=== PATIENT | female | born 1985 | race Caucasian/White ===

== ENCOUNTER → 2019-02-15 11:19 | Outpatient (CLI) | payer OTHER, SELFPAY ==
--- NOTE | 2019-02-15 | DI.RAD.S_ITS ---
PROCEDURE: XR CHEST 2V INDICATIONS: abd pain, rib pain TECHNIQUE: 2 views of the chest were acquired. COMPARISON: None. FINDINGS: Surgical changes and devices: None. Lungs and pleura: Lungs are clear. No pleural effusions or pneumothorax. Mediastinum: Mediastinal contours are normal. Heart size is normal. Bones and chest wall: No suspicious bony abnormalities. Soft tissues appear unremarkable. A metallic alvarez projects over the right upper quadrant of the abdomen on PA view and anteriorly external to the patient on lateral view. IMPRESSION: No acute cardiopulmonary disease. Dictated by: Bob Trinh M.D. on 02/15/2019 at 12:11 Approved by: Bob Trinh M.D. on 02/15/2019 at 12:14
--- NOTE | 2019-02-15 | DI.US.S_ITS ---
PROCEDURE: US ABDOMEN COMPLETE INDICATIONS: ABDOMINAL PAIN TECHNIQUE: Real-time scanning was performed of the abdominal and retroperitoneal organs, with image documentation. COMPARISON: None. FINDINGS: Liver: Liver is normal in size and homogeneous in echotexture. Gallbladder: 3.9 mm gallbladder polyp; otherwise normal gallbladder. Biliary ducts: Intrahepatic bile ducts are non-dilated. Extrahepatic bile duct caliber measures 4.9 mm. Normal is 6-7 mm or less in diameter, or 10 mm or less post-cholecystectomy. Pancreas: Visualized portions of the pancreas are sonographically normal. Spleen: Spleen is normal in size and homogeneous in echotexture. Kidneys: Kidneys are normal in size and echotexture. Right kidney measures 11.7 cm long; left kidney measures 11.1 cm long. No hydronephrosis or nephrolithiasis. No solid masses. Aorta: Visualized aorta is normal in caliber at less than 3 cm. Iliacs: Proximal common iliac arteries are normal in caliber at less than 2.5 cm. IVC: Intrahepatic inferior vena cava is patent. Miscellaneous: No free abdominal fluid. IMPRESSION: 1. 3.9 mm gallbladder polyp. Given the small size, no followup is necessary. 2. No source for right upper quadrant pain identified. Dictated by: Manuel PRATT Interpreted: Neal Martell MD on 02/15/2019 at 12:11 Approved by: Neal Martell M.D. on 02/15/2019 at 14:57
== END ==
PROVIDERS: PCP Family Medicine; Visit Provider Family Medicine
DX: K82.4 Cholesterolosis of gallbladder (principal); R10.9 Unspecified abdominal pain; R07.81 Pleurodynia
CPT/HCPCS: 71046; 76700

== ENCOUNTER → 2019-06-01 10:42 | Outpatient (CLI) | payer OTHER, SELFPAY ==
--- NOTE | 2019-06-01 | DI.US.S_ITS ---
PROCEDURE: US OB <= 14 WEEKS FETUS INDICATIONS: INITIAL SIZING AND DATING OUTSIDE/PRIOR DATING DATA: Last menstrual period (LMP): 04/16/19. LMP-based estimated date of delivery (GIO): 01/21/20. First dating scan (date and location): 06/01/19. Estimated date of delivery (GIO) from first dating scan: 01/26/20. TECHNIQUE: Real-time scanning was performed of the fetus and maternal pelvic organs, with image documentation. COMPARISON: None. FINDINGS: Embryo: Single intrauterine gestational sac is seen with fetus and yolk sac seen. heart rate is 109 beats per minute. [place]-rump length measures 3 mm. Estimated gestational age is 5 weeks, 6 days. Measurement variability in dating: +/- 4 weeks by LMP, +/- 7 days by mean sac diameter (use before 6 weeks gestation if crown-rump length not able to be measured), +/- 5 days by crown-rump length (up to 8 weeks 6 days gestation), +/- 7 days by crown-rump length (up to 13 weeks 6 days gestation). Maternal organs: There is questionable implantation new right cornu, a cornual ectopic cannot be excluded. Followup is recommended. No gross abnormalities in the bilateral adnexa. Limited images through the kidneys demonstrate no hydronephrosis. Small amount of free fluid is seen in posterior cul-de-sac and anterior to the uterus. IMPRESSION: 1. Single intrauterine gestation with fetus a new fracture seen. heart rate is 109 beats per minute. 2. Questionable right cornual implantation, suggests sonographic followup. 3. Small amount of free fluid in the posterior cul-de-sac and anterior to the uterus. Dictated by: Yoseph Gallagher M.D. on 06/01/2019 at 13:20 Approved by: Yoseph Gallagher M.D. on 06/01/2019 at 13:24
== END ==
PROVIDERS: PCP Family Medicine; Visit Provider Family Medicine
DX: Z34.91 Encounter for supervision of normal pregnancy, unspecified, first trimester (principal); Z3A.01 Less than 8 weeks gestation of pregnancy
CPT/HCPCS: 76801; 76817

== ENCOUNTER → 2019-06-12 08:53 | Outpatient (CLI) | payer OTHER, SELFPAY ==
--- NOTE | 2019-06-12 | DI.US.S_ITS ---
PROCEDURE: US OB <= 14 WEEKS FETUS INDICATIONS: RECHECK RIGHT CORNUAL IMPLANTATION OUTSIDE/PRIOR DATING DATA: Last menstrual period (LMP): 04/16/19. LMP-based estimated date of delivery (GIO): 01/21/20. First dating scan (date and location): A 06/01/19. Estimated date of delivery (GIO) from first dating scan: 01/26/20. TECHNIQUE: Real-time scanning was performed of the fetus and maternal pelvic organs, with image documentation. Endovaginal scanning was also performed to better visualize the fetus and maternal ovaries. COMPARISON: [facility], [facility], 03/23/2017, 14:55. [facility], [facility], 01/28/2017, 9:06. [facility], OB COMPLETE 14WKS OR MORE, 11/09/2016, 10:07. [facility], OB COMPLETE LESS THAN 14 WKS, 09/23/2016, 8:34. [facility], OB COMPLETE LESS THAN 14 WKS, 08/09/2016, 9:31. [facility], US ABDOMEN COMPLETE, 02/15/2019, 11:45. [facility], US OB <= 14 WEEKS FETUS, 06/01/2019, 11:04. FINDINGS: Embryo: [place]-rump length now 1.5 cm correlating with a gestational age of 7 weeks 5 days. Expected value from first OB ultrasound is 7 weeks 3 days. Appropriate interval growth, heart rate of 152 beats per minute observed, maternal cervical canal is 3.3 cm in length. Measurement variability in dating: +/- 4 weeks by LMP, +/- 7 days by mean sac diameter (use before 6 weeks gestation if crown-rump length not able to be measured), +/- 5 days by crown-rump length (up to 8 weeks 6 days gestation), +/- 7 days by crown-rump length (up to 13 weeks 6 days gestation). Maternal organs: Ovaries normal considering gestational status. Limited images through the kidneys demonstrate no hydronephrosis. Please note that as was the case with the first OB ultrasound on this study the uterus is seen to be at least partially if not bicornuate in its morphology. The current gestation is implanted within the right upper endometrial canal, and the left cornua appears uninvolved by this . IMPRESSION: Eccentric implantation of the current single intrauterine gestation, within the right cornua. This raises concern for a higher risk and specialist OB consultation appears warranted. Appropriate interval growth, no sign of abruption or perigestational hemorrhage at this time. Dictated by: Walter Styles M.D. on 06/12/2019 at 11:28 Approved by: Walter Styles M.D. on 06/12/2019 at 11:34
== END ==
PROVIDERS: PCP Family Medicine; Visit Provider Family Medicine
DX: Z36.2 Encounter for other antenatal screening follow-up (principal); Z3A.01 Less than 8 weeks gestation of pregnancy
CPT/HCPCS: 76801

== ENCOUNTER → 2019-12-25 19:13 | Outpatient (CLI) | payer OTHER, SELFPAY | PROVIDERS: PCP Family Medicine; Visit Provider Family Medicine | DX: Z34.80 Encounter for supervision of other normal pregnancy, unspecified trimester (principal) | CPT/HCPCS: 87081 ==

== ENCOUNTER → 2020-01-24 11:18 | Outpatient (CLI) | payer OTHER, SELFPAY ==
[2020-01-25 12:38] LABS: COVID19 Sendout Not Detected (Not Detect)
== END ==
PROVIDERS: PCP Family Medicine; Visit Provider Physician Assistant
DX: Z01.812 Encounter for preprocedural laboratory examination (principal)
CPT/HCPCS: 87635

== ENCOUNTER 2020-01-27 19:12 | Inpatient (IN) | payer OTHER, SELFPAY ==
--- NOTE | 2020-01-27 19:46 | DI.US.S_ITS ---
PROCEDURE: US OB LIMITED INDICATIONS: POSITION, CHASTITY, PLACENTA OUTSIDE/PRIOR DATING DATA: Last menstrual period (LMP): 04/16/2019 LMP-based estimated date of delivery (GIO): 01/21/2020 First dating scan (date and location): 06/01/2019 Estimated date of delivery (GIO) from first dating scan: 01/26/2020. TECHNIQUE: Real-time scanning was performed of the fetus, with image documentation. Endovaginal scanning: Not done. COMPARISON: [facility], [facility], 03/23/2017, 14:55. [facility] OB <= 14 WEEKS FETUS, 06/01/2019, 11:04. [facility] OB <= 14 WEEKS FETUS, 06/12/2019, 9:09. FINDINGS: A single live intrauterine gestation is present. Presentation: Vertex. Placenta: Placental position is anterior, without previa. Amniotic fluid index: 6.8 cm, normal range is 5-24 cm. heart rate: 163 beats per minute. Maternal cervical canal: Not seen. Estimated gestational age from initial scan: 40 weeks 1 day. IMPRESSION: Vertex presentation. CHASTITY equals 6.8 cm. Anterior placenta, without previa. Dictated by: Parag Morales M.D. on 01/27/2020 at 19:31 Approved by: Parag Morales M.D. on 01/27/2020 at 19:34
[2020-01-27] MEDS: DINOPROSTONE VAG (CERVIDIL) 10 MG VAG (21:28)
[2020-01-27 22:19] LABS: Add Manual Diff / Slide Review NO; Basophils Absolute Auto 0 /uL (0-100); Basophils Percent Auto 0.3 % (0-2); Eosinophils Absolute Auto 0 /uL (0-450); Eosinophils Percent Auto 0.3 % (2-4); Hematocrit 36.2 % (36-46); Hemoglobin 12.6 g/dL (12.0-16.0); Lymphocytes Absolute Auto 1600 /uL (1100-4500); Lymphocytes Percent Auto 21.2 % (25-40); Mean Corpuscular HGB Conc 34.7 % (30-36); Mean Corpuscular Hemoglobin 31.4 PG (26-34); Mean Corpuscular Volume 90.5 fL (80-100); Monocytes Absolute Auto 500 /uL (0-900); Monocytes Percent Auto 6.2 % (3-14); Neutrophils Absolute Auto 5400 /uL (1500-7000); Platelet Count 158 X10^3/uL (150-400); Red Cell Distribution Width 13.9 % (11.6-14.8); White Blood Cell Count 7.6 X10^3/uL (4.5-11.0)
[2020-01-28 00:14] VITALS: BP 111/74
[2020-01-28] MEDS: LACTATED RINGERS 1,000 ML 100 ML IV (07:55)
[2020-01-28] MEDS: OXYTOCIN PREMIX 30 UNIT/500 ML PLAST..BAG IV (09:46)
--- NOTE | 2020-01-28 13:27 | PM.AN.REGBLK ---
Regional Block Pre-procedure Procedure: Continuous Lumbar Epidural for L&D Attending OB provider: Renata Alvarado PMH/ROS narrative: term labor, no complications, no significant PMH. Hx: No personal or family history of anesthesia problems. ASA Class: II Labs: Hct 36.2 % (36-46) 01/27/20 22:00 Plt Count 158 X10^3/uL (150-400) 01/27/20 22:00 Medications: Current Medications Generic Name Dose Route Start Last Admin Trade Name Freq PRN Reason Stop Dose Admin Diphenhydramine HCl 25 mg 01/28/20 12:10 Benadryl IV Q10M PRN Pruritis Lactated Ringer's 1,000 mls @ 100 mls/hr 01/27/20 19:30 01/28/20 07:55 Lactated Ringers IV 100 mls/hr CONT SHANNA Administration Oxytocin/Lactated Ringer's 30 unit in 500 mls @ 1 mls/hr 01/28/20 09:15 01/28/20 09:46 Oxytocin Premix IV 1 milliunit/min TITRATE SHANNA 1 mls/hr Administration Protocol 1 MILLIUNIT/MIN FENT 2MCG/ML BUPIV 0.125% EPI 200 mcg in 100 mls @ 6 mls/hr 01/28/20 12:15 Fentanyl/Bupiv/Ns 2mcg/Ml - 0.125% EPIDURAL CONT SHANNA Misoprostol 25 mcg 01/27/20 19:16 Cytotec PO Q4HR PRN Cervical Ripening Zolpidem Tartrate 5 mg 01/27/20 19:16 Ambien PO BEDTIME PRN Sleep Allergies: Allergies Allergy/AdvReac Type Severity Reaction Status Date / Time No Known Drug Allergies Allergy Unverified 01/24/20 11:16 Procedure Insertion date: 01/28/20 Insertion time: 11:28 Prep/Local: betadine x3 Interspace: L2-3 Patient position: sitting Needle: 18 gauge Hustead (27g Pencan through Hustead, clear CSF, 0.5mL 0.25% bupiv) Loss of resistance with: saline HARMEET at (cm): 4 Catheter placed at SKIN (cm): 9 Catheter in SPACE (cm): 5 Insertion: No Blood, No Paresthesia with insertion, No Paresthesia with injection and No Test dose reaction Initial Medications TEST DOSE time: 12:32 TEST DOSE: 1.5% lidocaine with epinephrine 1:200k (mL): 3 BOLUS DOSE time: 12:34 BOLUS DOSE (mL): 3 BOLUS DOSE med: 0.125% bupivacaine with fentanyl 10 mcg/mL (infusate) Infusion INFUSION: 0.125% bupivacaine and with fentanyl 2 mcg/mL Initial rate (mL/hr): 8 Subsequent interventions: 18:10 4mL 0.25% bupiv with 50mcg fentanyl Post-procedure Anesthesia time START: 12:28 Anesthesia time END: 18:49
--- NOTE | 2020-01-28 17:25 | PM.OBPNLAB ---
Date/Time Date Patient Seen: 01/28/20 Time Patient Seen: 17:09 Pain Control Pain control: epidural Pelvic Exam Dilation (cm): 5 Effacement (%): 90 station: -1 Amniotic membrane status: Intact Contractions Contractions on admission: irregular Monitor mode: External Pitocin rate (mU/min): 2 Contraction frequency (min): 3 Contraction duration (min): 60 Contraction pattern: Irregular Contraction intensity: Moderate Status status: Category l Heart Rate Baseline: 110 Monitor Accelerations: Present Monitor Decelerations: Variable Monitor Variability: Moderate Comments: Overall reassuring strip which I would say is probably category 1. Low baseline heart rate in the 1 teens and at times in the low 100s. Good reactivity with head stimulation. Baby is still active. Assessment and Plan Assessment: active labor Plan: continuous present management
--- NOTE | 2020-01-28 17:27 | PM.OBPNLAB ---
Pelvic Exam Dilation (cm): 5 Effacement (%): 90 station: -1 Amniotic membrane status: Intact Contractions Monitor mode: External Contraction frequency (min): 3 Contraction pattern: Irregular Contraction intensity: Moderate Status status: Category l
--- NOTE | 2020-01-28 19:23 | P.PCNOB_ITS ---
Events: Low Fluid Volume in Amniotic Sac Labor & Delivery Delivery date: 01/28/20 Intrapartal events: None Cervical ripening method: per Cervidil protocol Induction method: per pitocin protocol Delivery augmentation: rupture of membranes Delivery monitor: external FHT and external uterine Route of delivery: L&D Laceration Description: Periurethral - 1st Degree and Superficial Delivery repair: chromic Estimated blood loss (mL): 300 Anesthesia type: Epidural Complications: rapid labor and delivery after 5 cm dilated Narrative: Identifying data: 34-year-old at 41 weeks estimated gestational age based on LMP and 1st trimester ultrasounds x2 is brought into labor and delivery for cervical ripening and induction. Patient received Cervidil last n ight because she was having contractions but not really feeling them so we opted for Cervidil. Patient was showing some mild progression this morning and Pitocin was begun. She had an uncomplicated . She has history of bicornuate uterus but good growth and no evidence of labor. GBS negative, Rh positive, cell free DNA negative, normal glucose tolerance test Stage I: 2 hours and 36 minutes Patient came in for cervical ripening and spent the night. She received 1 Cervidil. It was removed at 9:30 a.m. inpatient was 1 cm dilated 60% effaced posterior and negative 2 position. Pitocin was begun and maximum Pitocin was 3 milliunits. Patient had immediate development of contractions that were every 2 minutes and was feeling mildly. She was requesting pain medication and epidural was placed at 12:32 p.m.. She was felt to be active at 4:00 p.m. when she was showing cervical change going from 2-3 at 1:30 p.m. to 4 cm at about 1600. External tocometer was used throughout this stage. External heart monitor was used throughout this stage. Baseline varied from low 100s to 1 teens occasionally into the 120s with accelerations occasional variable decelerations occasional late placed mild deceleration that did not persist once IV fluids were given. There are periods of decreased variability but overall moderate variability and category 1 tracing. Baby had good accelerations with head stimulation. Artificial rupture membranes was done at 4:45 p.m. after multiple times and there is very small amount of clear bloody fluid that was obtained. At approximately 6:00 p.m. patient started feeling more pressure with her contractions. Then at approximately 6:20 p.m. she had significant increase in pain in anesthesia was called bolus was given but she did not have good relief and then they attempted to redo her epidural but she clearly appear to be in transition and was found to be 7 cm dilated. I was called by the nurse at that time and arrive several minutes later however when she was laid back down in the bed she is centrally was complete at 6:30 p.m. and involuntary pushing at 6:35 p.m. and delivered at 6:[address] goldberg was in the department and she stood by an assisted with the delivery. Baby was in occiput anterior position with a right compound presentation and easily delivered. Apgars were 9 at 1 minute and 9 at 5 minutes. The cord was clamped x2 and cut. Stage II lasted about 5 minutes Patient was laid down after they attempted to replace her epidural and was noted to be complete and baby was . She paid pushed for approximately 30 seconds and deliver the baby in the presence of Dr. goldberg at 6:36 p.m.. Compound presentation. Baby was vigorous at delivery with Apgars 9 at 1 minute and 9 at 5 minutes Stage III lasted 19 minutes Normal spontaneous vaginal delivery of an intact moderately calcified small but thick placenta with a lateral cord insertion and a 3 vessel cord. Estimated blood loss was 300 cc in the Pitocin was running. There was a 2 cm right periurethral laceration that was deepened bleeding a little bit and this was repaired with 3-0 Vicryl and 1% lidocaine. There was a perineal skid hema that was repaired as well. There were no cervical or vaginal tears. Pitocin was running in as the placenta was being delivered At the time this dictation both mom and baby are in stable condition
--- NOTE | 2020-01-28 19:50 | PM.OBHP.1 ---
OB HPI Date/Time Date of admission: 01/28/20 Date Patient Seen: 01/28/20 Time Patient Seen: 08:00 History of Present Condition Chief complaint: maternity : 3 Para: 1 Estimated Date of Delivery: 01/21/20 Estimated Gestational Age (weeks): 41 Narrative: Jennie Vega is a 34 year old female 41 weeks gestation with EDC of 01/21/2020 based on LMP and 1st trimester ultrasound x2. Patient was brought in for cervical ripening and planned induction for post dates and ultrasound was done to evaluate for placement CHASTITY was 6.8. Patient had a unremarkable . She was seen approximately 12 times. She had a weight gain of approximately 30 lb. Her blood pressures were 98-120/66-80. She had no complications Indications Indication for induction OB: post dates History of Present care: good care Dating criteria: LMP confirmed by 1st trimester US Ultrasounds: normal 1st trimester US and normal mid trimester US Abnormal ultrasound findings: Bicornuate uterus on early ultrasound but not present at 20 week level 2 ultrasound Obstetrical complications: none Medical complications: none Preadmission Labs Blood type: A (+) positive -: Antibody screen: negative, Cystic fibrosis screen: negative, GBS status: negative, HBsAG: negative, HIV: negative, HSV 1: negative, HSV 2: negative and RPR/VDLR: negative -: Chlamydia screen: not detected and Gonorrhea screen: not detected -: Rubella: immune and Varicella: immune HCT: 35.3 HCAB: negative PAP: Normal Cell-free DNA: Normal xy Urine: Negative 1 hr GTT: 136 Prior (ies) History: 03/26/2017, normal spontaneous vaginal delivery at 39 weeks at [facility] with epidural with no complications Previous spontaneous miscarriage first-trimester Evaluation Evaluation Laboratory results: Laboratory Tests 01/27/20 01/27/20 22:00 22:00 WBC 7.6 RBC 4.00 Hgb 12.6 Hct 36.2 MCV 90.5 MCH 31.4 MCHC 34.7 RDW 13.9 Plt Count 158 Neut % (Auto) 72.0 Lymph % (Auto) 21.2 L [place] % (Auto) 6.2 Eos % (Auto) 0.3 L Baso % (Auto) 0.3 Neut # (Auto) 5400 Lymph # (Auto) 1600 [place] # (Auto) 500 Eos # (Auto) 0 Baso # (Auto) 0 Blood Type A Positive Antibody Screen Negative [facility] Surgical History Status post dilation and curettage Status post myringotomy with insertion of tube Social History Smoking Status: Never smoker Meds Home Medications and Allergies Home Medications Medication Instructions Recorded Confirmed Type VIT#96/FERROUS FUM/FA 1 tab PO QDAY #0 tab 04/05/16 01/27/20 History ( Vitamin) folic acid 1 mg PO QDAY #0 tab 04/05/16 01/27/20 History Allergies Allergy/AdvReac Type Severity Reaction Status Date / Time No Known Drug Allergies Allergy Unverified 01/24/20 11:16 Review of Systems Review of Systems Narrative: Negative for leaking fluid No headaches. No mid epigastric pain. No lower extremity edema. Baby is active. No change in discharge. No significant contractions. No fever no cough. Co the time stain negative Exam Vital Signs (past 8 hours): Afebrile vital signs are stable HEENT unremarkable Neck is supple without adenopathy or masses Chest: Clear to auscultation without wheezes rhonchi or crackles Cor: Regular rate and rhythm without murmur Abdomen: Positive bowel sounds, soft, nontender, gravid, vertex presentation with estimated weight 7-1/2 lb Extremities: No edema, DTRs intact Objective Labs Result Diagrams: 01/27/20 22:00 Labs: Laboratory Results - last 24 hr 01/27/20 01/27/20 22:00 22:00 WBC 7.6 RBC 4.00 Hgb 12.6 Hct 36.2 MCV 90.5 MCH 31.4 MCHC 34.7 RDW 13.9 Plt Count 158 Neut % (Auto) 72.0 Lymph % (Auto) 21.2 L [place] % (Auto) 6.2 Eos % (Auto) 0.3 L Baso % (Auto) 0.3 Neut # (Auto) 5400 Lymph # (Auto) 1600 [place] # (Auto) 500 Eos # (Auto) 0 Baso # (Auto) 0 Blood Type A Positive Antibody Screen Negative Assessment and Plan Assessment and Plan Assessment and Plan narrative: 34-year-old G 3 P 1 at 41 weeks estimated gestational age with an CHASTITY of 6.8 here for induction. She had cervical ripening with Cervidil last night and and is due to come out at 9:30 p.m. and then we will begin Pitocin. Patient had unremarkable . History of bicornuate uterus. She was monitored for growth at you do. Showed good adequate growth. No early labor. Will begin Pitocin 1 Cervidil removed pending Darling score but due to low normally amniotic fluid and 41 weeks gestation we will move forward with delivery. GBS negative Cell free DNA negative XY A positive, rubella immune Glucose tolerance test 136 Epidural 1 becomes uncomfortable
[2020-01-28] MEDS: DOCUSATE 100 MG CAPSULE PO (21:28)
[2020-01-28] MEDS: IBUPROFEN 600 MG TABLET PO (21:28)
[2020-01-29 06:22] LABS: Hematocrit 31.6 % (36-46); Hemoglobin 11.3 g/dL (12.0-16.0)
[2020-01-29] MEDS: IBUPROFEN 600 MG TABLET PO (08:37)
[2020-01-29] MEDS: DOCUSATE 100 MG CAPSULE PO (08:38)
[2020-01-29] MEDS: PRENATAL VIT,CALC/IRON/FOLIC 1 TABLET 1 TAB PO (09:17)
--- NOTE | 2020-01-29 13:52 | P.DS_ITS ---
Discharge Providers Provider Date of admission: 01/27/20 19:12 Discharge Date: 01/29/20 Primary care physician: Renata Alvarado MD Consults: 01/29/20 19:21 Consult to [employer] Routine Comment: Discharge provider: Renata Alvarado MD Summary Hospital Course Date Patient Seen: 01/29/20 Time Patient Seen: 13:53 Peripartum Data Infant Delivery Method: Natural Vaginal Laceration description: Superficial Procedures: Normal spontaneous vaginal delivery Epidural complications: none Status at Discharge Cognitive/behavioral status at discharge: oriented Functional status at discharge: independent ambulation Overall status at discharge: patient is progressing back to baseline Time Spent with Patient Time attestation: Total time spent providing and/or coordinating discharge services:30 minutes Specific discharge activities: Routine discharge instructions regarding pelvic rest, no heavy lifting, breast-feeding, signs symptoms of infection. Follow-up in 2 weeks with me. Objective Labs Result Diagrams: 01/29/20 06:15 Labs: Laboratory Results - last 24 hr 01/29/20 06:15 Hgb 11.3 L Hct 31.6 L Exam Narrative Exam Narrative: Alert and oriented x3 HEENT unremarkable Neck is supple Chest: Clear to auscultation without wheezes rhonchi or crackles Cor: Regular rate and rhythm without murmur Abdomen: Positive bowel sounds, soft, uterus below umbilicus and nontender and firm Extremities no edema, pulses intact, DTRs intact Discharge Plan Discharge Plan Patient Disposition: Home Discharge orders & Medications Prescriptions: Continued folic acid 1 MG tablet 1 mg PO QDAY Qty: 0 RF: 0 VIT#96/FERROUS FUM/FA ( Vitamin) 1 tab PO QDAY Qty: 0 RF: 0 Follow up/Referrals: Renata Alvarado MD [Primary Care Provider] - Diet/Activity/Treatments Diet: Diet as Tolerated Activity: pelvic rest no heavy lifting Discharge Data Primary Care Provider: Renata Alvarado
[2020-01-29 14:25] VITALS: BP 111/74; PULSE 74; RESP 16; TEMP 37.1
== END 2020-01-29 14:25 | disposition home or self-care (01) | DRG 807 ==
PROVIDERS: Family Medicine; Admitting Provider Family Medicine; PCP Family Medicine; Referring Provider Family Medicine; Visit Provider Family Medicine
DX: O48.0 Post-term pregnancy (principal); Z37.0 Single live birth; Z3A.41 41 weeks gestation of pregnancy; O71.82 Other specified trauma to perineum and vulva
CPT/HCPCS: 01967; 36415; 59050; 76815; 85014; 85018; 85025; 86850; 86900; 86901; G0379; J2590

== ENCOUNTER → 2021-05-07 10:41 | Outpatient (CLI) | payer OTHER, SELFPAY ==
--- NOTE | 2021-05-07 | DI.US.S_ITS ---
PROCEDURE: US ABDOMEN COMPLETE INDICATIONS: Unspecified abdominal pain TECHNIQUE: Real-time scanning was performed of the abdominal and retroperitoneal organs, with image documentation. COMPARISON: [facility], , US ABDOMEN COMPLETE, 02/15/2019, 11:45. FINDINGS: Liver: Liver is normal in size and homogeneous in echotexture. Solitary 7 mm echogenic mass within the right hepatic lobe. Gallbladder: 2 small gallbladder polyps, largest measuring up to 4 mm. Biliary ducts: Intrahepatic bile ducts are non-dilated. Extrahepatic bile duct caliber measures 3.4 mm. Normal is 6-7 mm or less in diameter, or 10 mm or less post-cholecystectomy. Pancreas: Visualized portions of the pancreas are sonographically normal. Spleen: Spleen is normal in size and homogeneous in echotexture. Kidneys: Kidneys are normal in size and echotexture. Right kidney measures 11.1 cm long; left kidney measures 11.9 cm long. No hydronephrosis or nephrolithiasis. No solid masses. Aorta: Visualized aorta is normal in caliber at less than 3 cm. Iliacs: Proximal common iliac arteries are normal in caliber at less than 2.5 cm. IVC: Intrahepatic inferior vena cava is patent. Miscellaneous: No free abdominal fluid. IMPRESSION: 1. Probable cavernous hemangioma present given the sonographic appearance. Recommend sequential follow up sonography at 6, 12 and 24 month intervals for surveillance. 2. 2 small gallbladder polyps, largest measuring up to 4 mm which appears similar to prior examination. Dictated by: Manuel Lorenzo [facility] Interpreted: Yoseph Gallagher MD on 05/07/2021 at 11:32 Transcribed by: CHARLA on 05/07/2021 at 11:34 Approved by: Yoseph Gallagher M.D. on 05/07/2021 at 11:50
== END ==
PROVIDERS: PCP Family Medicine; Referring Provider Family Medicine; Visit Provider Family Medicine
DX: R10.9 Unspecified abdominal pain (principal); K82.4 Cholesterolosis of gallbladder
CPT/HCPCS: 76700

== ENCOUNTER → 2021-05-15 06:39 | Outpatient (CLI) | payer OTHER, SELFPAY ==
--- NOTE | 2021-05-15 | DI.MRI.S_ITS ---
PROCEDURE: MR ABDOMEN WO/W CON INDICATIONS: HEPATIC MASS TECHNIQUE: Coronal HASTE, axial 2D FLASH in- and [id number]; axial breath-hold T2 FSE. Dynamic axial VIBE during the administration of contrast; post-contrast coronal VIBE or 2D FLASH with fat saturation from the hepatic dome to the iliac crests. Optional diffusion weighted imaging and ADC may be performed. COMPARISON: [facility], US, US ABDOMEN COMPLETE, 02/15/2019, 11:45. [facility], US, US ABDOMEN COMPLETE, 05/07/2021, 10:59. FINDINGS: Image quality: There is motion artifact limiting evaluation. Lung bases: No basal pleural effusions. Heart size is normal. Solid organs: There is a small indistinct oval hypervascular lesion in segment 7 of the posterior right hepatic lobe measuring up to 0.8 cm on series 13, image 34. Evaluation is limited on T2 images due to motion artifact. This region appears slightly hypointense on T1 images. There is persistent mild hypervascular enhancement on the portal venous and delayed phases. The findings may represent a small hemangioma or a prominent portal venous branch. Elsewhere, no discrete hepatic mass identified. No definite areas of suspicious enhancement. The gallbladder appears within normal limits without gallstones. Biliary system is non dilated. Pancreas is normal in morphology. Spleen is normal in size and enhancement. No adrenal nodules. Both kidneys demonstrate normal size and enhancement, without hydronephrosis. Nodes and vessels: No retroperitoneal or mesenteric adenopathy by size criteria. Aorta and inferior vena cava are normal in size. Bowel and peritoneum: Visualized bowel loops are normal in caliber. No free fluid. Bones and soft tissues: No ventral hernias. Bone marrow is normal in overall signal. IMPRESSION: 1. Small indistinct hypervascular lesion in the posterior right hepatic lobe suggestive of a small hemangioma or prominent portal venous branch may correlate to the finding on recent ultrasound. Elsewhere, no discrete hepatic mass or suspicious enhancement identified. If clinically indicated, a follow-up ultrasound may be performed in 6 months to demonstrate stability. Dictated by: Reed Powell M.D. on 05/15/2021 at 9:05 Approved by: Reed Powell M.D. on 05/15/2021 at 9:28
== END ==
PROVIDERS: PCP Family Medicine; Referring Provider Family Medicine; Visit Provider Family Medicine
DX: R16.0 Hepatomegaly, not elsewhere classified (principal)
CPT/HCPCS: 74183; A9579

== ENCOUNTER 2023-06-01 18:50 | Emergency (ER) | payer OTHER, SELFPAY ==
[2023-06-01 18:52] VITALS: BP 178/117; PULSE 121; RESP 18; TEMP 36.9; O2SAT 99; BMI 18.1
--- NOTE | 2023-06-01 18:56 | DI.RAD.S_ITS ---
PROCEDURE: XR FINGER LT MIN 2V INDICATIONS: deformity TECHNIQUE: AP hand, 2 views of the 2nd finger(s) acquired. COMPARISON: None. FINDINGS: Bones: Dislocation can be seen involving the proximal interphalangeal joint of the 2nd finger. No carlton associated fracture can be seen. Soft tissues: There is soft tissue swelling. IMPRESSION: Second finger dislocation. Dictated by: Parag Morales M.D. on 06/01/2023 at 18:18 Approved by: Parag Morales M.D. on 06/01/2023 at 18:18
--- NOTE | 2023-06-01 19:10 | ED.UPPEXIN ---
HPI - Extremity Injury (Upper) General Chief Complaint: Extremity Injury, Upper Stated Complaint: needs finger put back in place Time Seen by Provider: 06/01/23 18:54 Source: patient Mode of arrival: Ambulatory History of Present Illness HPI narrative: 38-year-old female presents for finger dislocation. Patient was walking up carpeted steps when she tripped, jamming her finger. There is obvious swelling of her left index finger at the proximal interphalangeal joint. Related Data Home Medications Medication Instructions Recorded Confirmed VIT#96/FERROUS FUM/FA 1 tab PO QDAY #0 tabs 04/05/16 01/27/20 ( Vitamin) folic acid 1 mg tablet 1 mg PO QDAY #0 tabs 04/05/16 01/27/20 Allergies Allergy/AdvReac Type Severity Reaction Status Date / Time No Known Drug Allergies Allergy Verified 06/01/23 18:55 Review of Systems Review of Systems Narrative: Negative except as noted above. Patient History Surgical History Status post dilation and curettage Status post myringotomy with insertion of tube Social History Smoking Status: Never smoker Smoking Status: Never smoker alcohol intake frequency: 3 or more drinks per day Alcohol type: wine Substance Use Type: does not use Exam Initial Vital Signs Initial Vital Signs: Vital Signs Temperature 98.4 F 06/01/23 18:52 Pulse Rate 121 H 06/01/23 18:52 Respiratory Rate 18 06/01/23 18:52 Blood Pressure 178/117 H 06/01/23 18:52 Pulse Oximetry 99 06/01/23 18:52 Oxygen Delivery Method Room Air 06/01/23 18:52 Const: Awake, alert, no acute distress, nontoxic appearing Cardiac: regular rate, regular rhythm RESP: unlabored, clear bilaterally, no wheezing MSK: Deformity left index finger PIP, decreased range of motion due to swelling/pain, pulses equal Skin: Warm, Dry, intact, no rashes Neuro: AO x3, CN II-XII grossly intact, moves all extremities Procedures Orthopedic Joint Reduction Joint #1: Side: left Joint Reduction Location: finger Analgesia: other (ice) Technique used: traction/counter-traction and direct manipulation Post-reduction neuro exam: intact Post-reduction vascular: intact Post Reduction X-Ray Obtained: No Splint Applied: Yes Patient Tolerated Procedure: Well and No complications Course Orders Ordered: ED Orders 06/01/23 18:56 XR finger LT min 2V Stat Vital Signs Vital signs: Vital Signs - 8 hr 06/01/23 18:52 Temperature 98.4 F Pulse Rate 121 H Respiratory Rate 18 Blood Pressure 178/117 H Pulse Oximetry 99 Oxygen Delivery Method Room Air MDM - Extremity Injury (Upper) Differential Diagnosis Differential diagnosis: Likely finger sprain, dislocation of finger and fracture of hand MDM Narrative Medical decision making narrative: Finger deformity after trip and fall. X-ray showed dislocation without fracture. Patient's finger was submerged in ice water and after the finger was numbed the joint was manually reduced with gentle traction. Subsequently placed in finger splint. Rice instructions counseled at bedside.f Discharge Plan Departure Patient Disposition: Home Clinical Impression: Dislocation closed, finger Qualifiers: Encounter type: initial encounter Qualified Code(s): S63.259A - Unspecified dislocation of unspecified finger, initial encounter Instructions: DI for Finger Dislocation Activity Restrictions/Additional Instructions: You may take Tylenol and Motrin as needed for pain. Please follow up with your primary care doctor. Wear the splint for at least the next several days unless otherwise instructed by her primary care doctor. Prescriptions: No Action folic acid 1 MG tablet 1 mg PO QDAY Qty: 0 VIT#96/FERROUS FUM/FA ( Vitamin) 1 tab PO QDAY Qty: 0 Referrals: Renata Alvarado MD [Primary Care Provider] - Stand Alone Forms: Patient Portal/API
== END 2023-06-01 19:23 | disposition home or self-care (01) ==
PROVIDERS: Emergency Provider Emergency Medicine; PCP Family Medicine
DX: S63.281A Dislocation of proximal interphalangeal joint of left index finger, initial encounter (principal); W01.0XXA Fall on same level from slipping, tripping and stumbling without subsequent striking against object, initial encounter; Y93.01 Activity, walking, marching and hiking
CPT/HCPCS: 26770; 73140; 99283

== ENCOUNTER → 2023-07-12 15:38 | Outpatient (CLI) | payer OTHER, SELFPAY ==
--- NOTE | 2023-07-12 | DI.US.S_ITS ---
PROCEDURE: US PELVIC COMPLETE INDICATIONS: DUB TECHNIQUE: Real-time scanning was performed of the pelvic organs, with image documentation. Additional endovaginal scanning was necessary due to incomplete visualization of the adnexal and endometrial structures by transabdominal scanning. COMPARISON: [facility], US, PELVIC COMPLETE, 05/10/2017, 9:50. FINDINGS: Uterus: Uterus is retroverted and normal in size at 8.5 x 7.6 x 6.2 cm. The myometrium is heterogeneous. 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 The endometrium measures 8 mm combined thickness. A hypoechoic fluid collection is seen within the endometrium of the left uterine horn measuring 1.6 x 1.0 x 0.7 cm. Ovaries: The right ovary measures 1.8 x 2.6 x 1.6 cm, with a calculated ovarian volume of 3.8 cc. The left ovary measures 2.6 x 0.9 x 1.1 cm, with a calculated ovarian volume of 1.3 cc. The ovaries have a normal sonographic appearance. Less than 12 follicles can be seen in each ovary. No adnexal masses are seen. Other: No pathologic free abdominal or pelvic fluid. IMPRESSION: 1. Nonspecific hypoechoic endometrial fluid collection is seen within the uterine fundus in the area of the left uterine horn. If patient has a positive test, this could represent an early gestational sac. This could also represent loculated endometrial fluid or an endometrial cyst. 2. Mildly heterogeneous appearance of the uterus can be seen in setting of adenomyosis. 3. Ovaries appear normal bilaterally. Approved by: Eyad Alvarenga M.D. on 07/12/2023 at 21:49
== END ==
PROVIDERS: PCP Family Medicine; Referring Provider Registered Nurse; Visit Provider Registered Nurse
DX: N93.9 Abnormal uterine and vaginal bleeding, unspecified (principal)
CPT/HCPCS: 76830; 76856

== ENCOUNTER → 2023-07-18 14:23 | Outpatient (CLI) | payer OTHER, SELFPAY ==
--- NOTE | 2023-07-18 14:25 | DI.US.S_ITS ---
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 Additional endovaginal scanning was necessary due to incomplete visualization of the adnexal and endometrial structures by transabdominal scanning. COMPARISON: [facility], US, US PELVIC COMPLETE, 07/12/2023, 15:48. FINDINGS: Uterus: Uterus is retroverted and normal in size at 9.6 x 6.0 x 8.9 cm. The myometrium is homogeneous. Bicornuate appearance. The endometrium measures 02/09/2011 mm combined thickness. There is an anechoic collection in the left horn the endometrium measuring 1.8 x 0.9 x 1.3 cm, previously 1.6 x 1.0 x 0.7 cm. Ovaries: The right ovary measures 1.1 x 2.1 x 1.1 cm, with a calculated ovarian volume of 1.4 cc. The left ovary measures 2.0 x 4.7 x 1.4 cm, with a calculated ovarian volume of 7 cc. Solid-appearing left ovarian follicles measuring 1.5 x 1.3 x 1.0 cm and 1.2 x 1.0 x 1.3 cm. Other: No pathologic free abdominal or pelvic fluid. IMPRESSION: Similar size and appearance of the anechoic collection within the left horn of the endometrium measuring 1.8 x 0.9 x 1.3 cm. Findings could represent a residual gestational sac or entrapped fluid within the left horn. Bicornuate appearance of the uterus. Solid appearing left ovarian follicles measuring 1.5 cm and 1.3 cm. These probably represent hemorrhagic follicles. Consider follow-up in 6-12 weeks with ultrasound. We strive to produce accurate, complete, and clear reports of imaging services. To assist us in improving patient care, this report was composed using standard report templates and voice recognition software. Therefore, it may contain abnormal punctuation, insertions and/or omissions. Occasional wrong-word or sound-alike substitutions may occur. Though we review the report and make efforts to correct it, we do recommend that the report be read carefully in proper context to recognize any text inaccuracies. Dictated by: Manuel Hickey M.D. on 07/18/2023 at 15:14 Approved by: Manuel Hikcey M.D. on 07/18/2023 at 15:17
== END ==
PROVIDERS: PCP Family Medicine; Referring Provider Registered Nurse; Visit Provider Registered Nurse
DX: N93.9 Abnormal uterine and vaginal bleeding, unspecified
CPT/HCPCS: 76830; 76856

== ENCOUNTER → 2023-10-24 14:37 | Outpatient (CLI) | payer OTHER, SELFPAY ==
--- NOTE | 2023-10-24 | DI.RAD.S_ITS ---
PROCEDURE: XR FINGER LT MIN 2V INDICATIONS: PAIN IN FINGERS TECHNIQUE: AP hand, 2 views of the 2nd finger(s) acquired. COMPARISON: None. FINDINGS: Bones: No fractures or dislocations. No suspicious bony lesions. Soft tissues: No suspicious soft tissue calcifications. IMPRESSION: Soft tissue swelling fracture or foreign body Approved by: Pierce Washington M.D. on 10/24/2023 at 19:58
== END ==
LOC: RAD 14:38
PROVIDERS: PCP Family Medicine; Referring Provider Family Medicine; Visit Provider Family Medicine
DX: M79.645 Pain in left finger(s) (principal)
CPT/HCPCS: 73140

== ENCOUNTER → 2023-10-28 15:00 | Outpatient (CLI) | payer OTHER, SELFPAY ==
--- NOTE | 2023-10-28 | DI.US.S_ITS ---
PROCEDURE: US ABDOMEN COMPLETE INDICATIONS: ABDOMINAL PAIN TECHNIQUE: Real-time scanning was performed of the abdominal and retroperitoneal organs, with image documentation. COMPARISON: [facility], US, US ABDOMEN COMPLETE, 05/07/2021, 10:59. FINDINGS: Liver: Liver is normal in size and homogeneous in echotexture. 6 mm hepatic hemangioma is unchanged from 202. Gallbladder: The gallbladder wall measures 1.2 mm in diameter. A 4 mm and a 2 mm polyp are noted. Biliary ducts: Intrahepatic bile ducts are non-dilated. The common hepatic duct measures 3.3 mm in diameter. Normal is 6-7 mm or less in diameter, or 10 mm or less post-cholecystectomy. Pancreas: Visualized portions of the pancreas are sonographically normal. Spleen: Spleen is normal in size and homogeneous in echotexture. Kidneys: Kidneys are normal in size and echotexture. Right kidney measures 10.6 cm long; left kidney measures 11.2 cm long. No hydronephrosis or nephrolithiasis. No solid masses. Aorta: Visualized aorta is normal in caliber at less than 3 cm. Iliacs: Proximal common iliac arteries are normal in caliber at less than 2.5 cm. IVC: Intrahepatic inferior vena cava is patent. Miscellaneous: No free abdominal fluid. IMPRESSION: 1. No cholelithiasis or findings to suggest choledocholithiasis or acute cholecystitis. 2 and 4 mm gallbladder polyps. No further follow-up necessary given small size. Dictated by: Maggi Shields M.D. on 10/28/2023 at 16:14 Approved by: Maggi Shields M.D. on 10/28/2023 at 16:16
== END ==
PROVIDERS: PCP Family Medicine; Referring Provider Family Medicine; Visit Provider Family Medicine
DX: K82.4 Cholesterolosis of gallbladder (principal); D18.09 Hemangioma of other sites; R10.84 Generalized abdominal pain
CPT/HCPCS: 76700

== ENCOUNTER → 2024-05-25 13:25 | Outpatient (CLI) | payer OTHER, SELFPAY ==
--- NOTE | 2024-05-25 13:28 | DI.RAD.S_ITS ---
PROCEDURE: XR FOOT RT MIN 3V INDICATIONS: TOE PAIN TECHNIQUE: 3 views of the foot were acquired. COMPARISON: None. FINDINGS: Bones: No fractures or dislocations. No suspicious bony lesions. Soft tissues: No tibiotalar joint effusion. Achilles tendon appears normal. IMPRESSION: No acute bony abnormality. No significant degenerative change or prior trauma is found. Dictated by: Walter Styles M.D. on 05/25/2024 at 14:01 Approved by: Walter Styles M.D. on 05/25/2024 at 14:01
== END ==
LOC: RAD 13:27
PROVIDERS: PCP Family Medicine; Referring Provider Family Medicine; Visit Provider Family Medicine
DX: M79.674 Pain in right toe(s) (principal)
CPT/HCPCS: 73630